=== PATIENT | female | born 1965 | race Caucasian/White ===

== ENCOUNTER 2016-12-04 09:53 | Emergency (ER) | payer SELFPAY ==
[~2016-12-04] VITALS: Ht 165.1 cm; Wt 88.6 kg
[2016-12-04 10:47] LABS: EOSINOPHIL (%) 2.9 % (0-5); EOSINOPHIL COUNT 0.3 K/uL (0-0.3); HEMATOCRIT 40.8 % (36.0-46.0); IMMATURE GRANULOCYTE (%) 0.5 % (0.0-0.7); INSTRUMENT ABS NEUTROPHIL CT 5.3 K/uL; LYMPHOCYTE COUNT 2.8 K/uL (1.0-2.8); MCH 31.9 PG (29.0-34.0); MCHC 34.8 G/DL (30.0-36.0); MCV 91.7 FL (83-99); MEAN PLAT.VOLUME 10.6 uM^3 (9.5-12.4); MONOCYTE (%) 5.4 % (3-12); MONOCYTE COUNT 0.5 K/uL (0-0.8); NEUTROPHIL (%) 59.8 % (45-76); NEUTROPHIL COUNT 5.3 K/uL (1.8-6.4); PLATELET COUNT 286 K/uL (156-360); RBC DIS.WIDTH-CV 12.6 % (11.8-14.6); RBC DIS.WIDTH-SD 42.2 % (39-53); RED BLOOD COUNT 4.45 M/uL (3.80-5.20); WHITE BLOOD COUNT 8.8 K/uL (4.1-10.2)
[2016-12-04 11:03] LABS: ADD MIUA? YES; BILIRUBIN NEGATIVE; BLOOD NEGATIVE; COLOR YELLOW ((YELLOW)); GLUCOSE (STRIP) 150; KETONES 20; LEUKOCYTES MODERATE; NITRITE NEGATIVE; PROTEIN (STRIP) 100; SPECIFIC GRAVITY 1.019 (1.000-1.030); UROBILINOGEN 0.2 MG/DL (0.2-1.0)
[2016-12-04 11:06] LABS: CHLORIDE 97 mEq/L (99-109); POTASSIUM 3.6 mEq/L (3.7-5.4); SODIUM 136 mEq/L (136-147)
[2016-12-04 11:08] LABS: GLUCOSE 284 mg/dL (70-99)
[2016-12-04 11:09] LABS: ANION GAP 15 MEQ/L (2-14)
[2016-12-04 11:10] LABS: TOTAL BILIRUBIN 0.7 mg/dL (0.0-1.0)
[2016-12-04 11:10] LABS: BACTERIA RARE /HPF; EPITHELIAL CELLS 1+ /HPF; MUCUS TRACE /LPF; RED BLOOD CELLS 0-5 /HPF (0-5); WHITE BLOOD CELLS 15-20 /HPF (0-5)
[2016-12-04 11:11] LABS: ALKALINE PHOSPHATASE 139 IU/L (3-129)
[2016-12-04 11:12] LABS: GFR ESTIMATE (CALCULATED) > 59 mL/min/
[2016-12-04 11:13] LABS: UREA NITROGEN (BUN) 7 mg/dL (9-23)
[2016-12-04 11:15] LABS: LIPASE 27 U/L (1.0-51.0)
[2016-12-04] MEDS ORDERED: CIPRO500 MG PO (12:09)
[2016-12-04] MEDS ORDERED: TYLENOL WITH C1 EACH PO (12:09)
[2016-12-04 12:20] VITALS: BP 143/78
== END 2016-12-04 12:22 | disposition home or self-care (01) ==
LOC: EME 09:53
PROVIDERS: Emergency Medicine
DX: N39.0 Urinary tract infection, site not specified (principal); N83.202 Unspecified ovarian cyst, left side; K58.0 Irritable bowel syndrome with diarrhea; E11.9 Type 2 diabetes mellitus without complications
CPT/HCPCS: 74176; 80053; 81003; 83690; 85025; 99281; 99285; J2270; J2405; J7030